=== PATIENT | male | born 1945 | race Caucasian/White ===

== ENCOUNTER 2018-10-02 07:23 | Outpatient (CLI) | payer MEDICARE, OTHER ==
--- NOTE | 2018-10-02 09:41 | ULT ---
STANDARD BILATERAL RENAL ULTRASOUND: HISTORY: Gross hematuria. History of bladder cancer in 1969. COMPARISON: CT abdomen and pelvis from 2016. TECHNIQUE: Real-time, rosa-scale, and color evaluation of the kidneys and urinary bladder was performed. FINDINGS: The right kidney measures 10.5 x 5.2 x 5.8 cm, and the left kidney measures 11.9 x 5.2 x 5.7 cm. Pre-void urinary bladder volume is 39 mL. There is a cyst, inferior pole, right kidney, measuring up to 1.9 cm. There is an isoechoic either mass or what represents a prominent column of Nic interp olar left kidney, measuring up to 2.3 cm. IMPRESSION: Either a prominent column of Nic, interpolar left kidney, measuring up to 2.3 cm. This had been d escribed as prominent dromedary hump and column of Nic on prior CT examination. POS: [facility]
== END 2018-10-02 07:24 | disposition home or self-care (01) ==
LOC: BICULT 07:23
PROVIDERS: ATTEND Urology
DX: R31.0 Gross hematuria (principal)
CPT/HCPCS: 76770

== ENCOUNTER 2018-10-16 07:33 | Outpatient (CLI) | payer MEDICARE, OTHER ==
--- NOTE | 2018-10-16 10:16 | CT ---
PRE AND POST CONTRAST ENHANCED CT IMAGES ABDOMEN: Pelvic CT was not ordered and, therefore, was performed. HISTORY: Hematuria. FINDINGS: Pre- and postcontrast-enhanced CT images of abdomen were obtained before and after administration of IV Contrast. The lung bases are unremarkable. No evidence of free intraperitoneal air is seen. The liver and spleen are unremarkable. The gallbladder is unremarkable. The pancreas is unremarkable. Adrenal glands unremarkable. The kidneys demonstrate some areas of cortical thinning. Tiny cortical cysts are seen in the right a nd left kidneys. No evidence of periaortic lymphadenopathy is seen. No evidence of retroperitoneal masses or lesions seen. The urinary bladder is not included on this CT of the abdomen and, therefore, cannot be commented upo n. IMPRESSION: Unremarkable pre- and postcontrast-enhanced CT images of the abdomen. Pelvic images were not include d on this study. POS: [facility]
[2018-10-16] MEDS ORDERED: Iopamidol 370 76% 100 ML VIAL ONE (17:11)
== END 2018-10-16 07:34 | disposition home or self-care (01) ==
LOC: CT 07:33
PROVIDERS: ATTEND Urology
DX: N28.9 Disorder of kidney and ureter, unspecified (principal)
CPT/HCPCS: 74170; 82565; Q9967

== ENCOUNTER 2020-12-10 08:09 | Outpatient (CLI) | payer MEDICARE, OTHER | END 2020-12-10 08:10 | disposition home or self-care (01) | LOC: BICRAD 08:09 | PROVIDERS: ATTEND Specialist | DX: M12.811 Other specific arthropathies, not elsewhere classified, right shoulder (principal); M12.812 Other specific arthropathies, not elsewhere classified, left shoulder; M51.16 Intervertebral disc disorders with radiculopathy, lumbar region ==

== ENCOUNTER 2020-12-31 07:24 | Outpatient (CLI) | payer MEDICARE, OTHER | END 2020-12-31 07:25 | disposition home or self-care (01) | LOC: BICMRI 07:24 | PROVIDERS: ATTEND Specialist | DX: M47.22 Other spondylosis with radiculopathy, cervical region (principal); M48.02 Spinal stenosis, cervical region; E07.89 Other specified disorders of thyroid | CPT/HCPCS: 72141 ==